=== PATIENT | male | born 1960 | race Caucasian/White ===

== ENCOUNTER 2019-12-08 09:42 | Inpatient (IN) ==
--- NOTE | 2019-12-05 09:14 | Anesthesiology Consultation ---
Date of Service December 05, 2019 Assessment & Plan (1) Encounter for pre-operative examination: History Surgery Operation Date: 12/08/19 11:20 Proposed Procedures p L4-S1 Decompression and Fusion, Spinal Cord Monitoring - Tobi Lilly DO Height/Weight Height: 6 ft Weight: 102.058 kg Allergies Allergy/AdvReac Type Severity Reaction Status Date / Time No Known Allergies Allergy Verified 12/05/19 07:52 Medications Home Medications Medication Instructions Recorded Confirmed Last Taken aspirin [Aspir-81] 81 mg PO QAM 11/14/19 12/05/19 12/02/19 atorvastatin [Lipitor] 20 mg PO QAM 11/14/19 12/05/19 12/02/19 metformin 2,000 mg PO QAM 11/14/19 12/05/19 12/02/19 [id number]-mhl-TI-lycopen-lutein 1 tab PO QAM 11/14/19 12/05/19 12/02/19 [Centrum Silver] dexamethasone See Rx Instructions .ROUTE 12/02/19 12/05/19 Unknown .COMPLEX #15 tab cyclobenzaprine 5 mg PO TID PRN 12/04/19 12/05/19 Unknown oxycodone-acetaminophen 1 tab PO Q8H PRN 12/04/19 12/05/19 Unknown Past Medical History Medical History (Updated 12/05/19 @ 09:11 by Gail Olmos PA-C) CAD (coronary artery disease) s/p stent in 2004 and stent in 2009 Degenerative disc disease Hypercholesterolemia Pre-diabetes Past Family History Family History Mother Family history of diabetes mellitus Past Surgical History Surgical History History of arthroscopy RT KNEE History of cardiac cath LAST CARDIAC CATH 2014 History of colonoscopy History of heart artery stent 2004, 2009 (2 TOTAL STENTS) DONE IN AT [place] History of tonsillectomy Hx of cataract surgery RT/LEFT Hx of shoulder surgery RT [place] teeth removed Social History Smoking Status: Never smoker Do You Dip or Chew Tobacco: No Hx Alcohol Use: Yes Alcohol type: beer alcohol intake frequency: a few times a month Hx Substance Use: No substance use type: does not use Testing Electrocardiogram Date: 12/04/19 SR with occ PVCs at 76 bpm. Chest X-Ray Date: 12/04/19 Findings: + NAD
[~2019-12-08 09:42] MED LIST: ACETAMINOPHEN 500 MG TAB PO SCH; CEFAZOLIN 2000MG 2,000 MG/15 ML SYR IV SCH; CeleBREX 200 MG CAP PO SCH; GABAPENTIN 600 MG DOSE PO SCH; LR 15ML/HR IV SCH
[2019-12-08] MEDS ORDERED: ONDANSETRON INJ 2 MG/ML 2 ML VIAL IV PRN ×2 (10:52→15:54)
[2019-12-08] MEDS ORDERED: ePHEDrine sulfate 50 MG/ML AMP IV PRN (10:52)
[2019-12-08] MEDS ORDERED: HYDROmorphone INJ 1 MG/ML SYRINGE IV PRN ×2 (10:52→15:54)
[2019-12-08] MEDS ORDERED: ATROPINE SULFATE 0.1 MG/ML 10ML SYR IV PRN (10:52)
[2019-12-08] MEDS ORDERED: fentaNYL citrate 100 MCG/2 ML VIAL IV PRN (10:52)
--- NOTE | 2019-12-08 10:52 | History & Physical Report ---
Date of Service December 08, 2019 Assessment & Plan (1) Neurogenic claudication due to lumbar spinal stenosis: Lumbar decompression and fusion L4-L5 L5-S1 Present on Admission?: Yes History of Present Illness Chief Complaint: Back and bilateral leg pain Primary Care Provider: Willie Hudson This is a 59-year-old male who presents with worsening back and leg pain after failing extensive course of nonoperative care is here for surgical invention. Allergies Allergy/AdvReac Type Severity Reaction Status Date / Time No Known Allergies Allergy Verified 12/08/19 10:23 Home Medications Home Medications Medication Instructions Recorded Confirmed Type aspirin [Aspir-81] 81 mg PO QAM 11/14/19 12/08/19 History atorvastatin [Lipitor] 20 mg PO QAM 11/14/19 12/05/19 History metformin 2,000 mg PO QAM 11/14/19 12/05/19 History bmpgrukk-nbg-JV-lycopen-lutein 1 tab PO QAM 11/14/19 12/08/19 History [Centrum Silver] dexamethasone See Rx Instructions .ROUTE 12/02/19 12/08/19 Rx .COMPLEX #15 tab cyclobenzaprine 5 mg PO TID PRN 12/04/19 12/08/19 History oxycodone-acetaminophen 1 tab PO Q8H PRN 12/04/19 12/08/19 History lorazepam [Ativan] 0.5 mg PO PM PRN 12/08/19 12/08/19 History Past Med/Surg History Family History Mother Family history of diabetes mellitus Social History Preferred Language: Marshallese Communication Ability: Effective Quarter Lining Smoother Required: No Beliefs That Will Affect Care: None Current Living Situation: Spouse Feels Safe at Home: Yes Safety Concerns: Feels Safe At This Time Smoking Status: Never smoker Do You Dip or Chew Tobacco: No ; Second Hand Exposure: No ; Tobacco Cessation Education Requested by Patient: No Hx Alcohol Use: Yes Alcohol type: beer Hx Substance Use: No Physical Exam Physical Exam: Patient is alert and oriented Patient has weakness affecting left lower extremity. Obvious distress. Heart is regular rate and rhythm Lungs clear to auscultation Results & Data Vital Signs (Past 12 Hours) Vital Signs Temp Pulse Resp BP Pulse Ox 12/08/19 10:29 36.8 C 66 18 152/99 H 96
[2019-12-08] MEDS ORDERED: BUPIVACAINE/EPINEPHRINE 0.25% 1:200,000 30 ML VIAL ONE (11:28)
[2019-12-08] MEDS ORDERED: BACITRACIN INJ 50,000 UNIT VIAL ONE (11:29)
[2019-12-08] MEDS ORDERED: MIDAZOLAM HCL 1 MG/ML 2ML VIAL ONE (11:31)
[2019-12-08] MEDS ORDERED: ONDANSETRON INJ 2 MG/ML 2 ML VIAL ONE (11:31)
[2019-12-08] MEDS ORDERED: DEXAMETHASONE SOD INJ 4 MG/ML VIAL ONE (11:31)
[2019-12-08] MEDS ORDERED: LIDOCAINE HCL 2% 2 ML VIAL/AMP(20MG/ML) INFIL ONE (11:31)
[2019-12-08] MEDS ORDERED: fentaNYL citrate 100 MCG/2 ML VIAL ONE ×3 (11:31→14:22)
[2019-12-08] MEDS ORDERED: ROCURONIUM BROMIDE 10 MG/ML 5 ML VIAL ONE (11:31)
[2019-12-08] MEDS ORDERED: PROPOFOL IV EMULSION 10 MG/ML 20 ML VIAL IV ONE (11:31)
[2019-12-08] MEDS ORDERED: NEOSTIGMINE METHYLSULFATE 5 MG/5 ML SYR ONE (13:53)
[2019-12-08] MEDS ORDERED: GLYCOPYRROLATE 0.2 MG/ML VIAL ONE (13:53)
[2019-12-08] MEDS ORDERED: FLOSEAL HEMOSTATIC MATRIX 10ML TOP ONE (14:06)
--- NOTE | 2019-12-08 14:24 | Operative Report ---
Post Operative Report Pre & Post Diagnosis Operation Date: 12/08/19 11:20 Pre-Op Diagnosis: Lumbar Spinal Stenosis with Neurogenic Claudication Post-Op Diagnosis: Lumbar Spinal Stenosis with Neurogenic Claudication I identified the patient and participated in the time-out.: Yes Procedure Operation Date: 12/08/19 11:20 Actual Procedures #1 lumbar decompression with bilateral medial facetectomies and foraminotomies L3-4, L4-5 L5-S1. #2 posterior spinal fusion L4-5 L5-S1. #3 placed posterior instrumentation L4-5 L5-S1. #4 interbody fusion L4-5 L5-S1. #5 placed a peek cage 13 x 26 mm at L4-5 and 14 x 26 mm at L5-S1. #6 placement of locally harvested morselized autograft in the posterior lateral gutters. #7 placement infuse collagen sponge, master graft in the posterior lateral gutters and ostial amp and interbody space. Surgeon Tobi Lilly, Internet Sales Associate Ilana Real Estimated Blood Loss 400 Findings Consistent with Post-Op Diagnosis Specimens None Indications This is a 59-year-old male who presents with marked decline in status secondary to severe stenosis and far lateral disc herniation. Subsequently he is here for urgent decompression fusion. Description of Procedure Patient was met with preoperatively case discussed all questions were addressed. That point patient was taken back to the operative suite after successfully undergoing intubation department seizure was placed in a prone position the Eliceo table on top of the Mendoza frame. All bony prominences well-padded eyes inspected to ensure no external pressure placed upon them. This point the lumbar spine was prepped and draped in a normal sterile fashion. Sharp dissection with the assistance of Bovie cautery was performed down to and exposing the lamina and transverse processes of L4-L5 and the sacral ala bilaterally. From a caudal cephalad fashion complete laminectomy of L5 L4 and partial laminectomy of L3 was performed including bilateral medial facetectomies and foraminotomies addressing severe spinal stenosis. As well there is evidence of a massive disc condition occupying the foramen L4-5 on the left. This was removed in its entirety. Pedicle screws were then placed in L4-L5 and S1 levels bilaterally with assistance of fluoroscopy and appropriately sized david placed. By way of a transforaminal approach on the left complete discectomy of L5-S1 was performed endplates curetted to subcortical bleeding bone and a 14 x 26 mm peek cage filled with osteo-bone graft tapped in position. Then proceeded L4-[address] of a trans-foraminal approach on the left complete discectomy performed endplates curetted to subcortical bleeding bone and a 13 x 26 mm peek cage filled with osteo-bone graft tapped in position. The rods were then locked into final position bilaterally. The transverse processes of L3-L4-L5 bur to subcortical bleeding bone. Infuse collagen sponge master graft local autograft placed in the posterior lateral gutters. 15 round JULISA drain inserted. The incision was then closed with 1 Vicryl in the fascia 2-0 Vicryl subcutaneously and 4 Monocryl for final skin closure. Steri-Strip sterile dressings placed. Patient waken taken PACU stable condition. Please note spinal cord monitoring was utilized that the procedure no changes noted. Lastly Ilana Real was present at the entire procedure involved the patient positioning complex portion of the surgery and final skin closure. I attest to the content of the Intraoperative Record and any orders documented therein. Any exceptions are noted below.
--- NOTE | 2019-12-08 14:31 | Fluoroscopy Report ---
FL lumbar spine 2-3V CLINICAL HISTORY: L4-S1 DECOMPRESSION COMPARISON STUDY: Lumbar spine MRI November 14, 2019. FLUOROSCOPY TIME: 19.5 seconds. FLUOROSCOPIC IMAGES: 2 FINDINGS: These images demonstrate L4-L5 and L5-S1 discectomies with interbody spacer placement. Post erior decompression is noted with bilateral pedicle screws at the L4, L5 and S1 levels with interconn ecting rods. Hardware is intact. There are no unexpected radiopaque foreign bodies. IMPRESSION: Fluoroscopy provided for L4-L5 and L5-S1 discectomies, posterior decompression and bilat eral pedicle screw fusion. ACT 112: Negative or not required by law. Electronically signed by: Nick Bowden M.D. 12/08/2019 2:30 PM
--- NOTE | 2019-12-08 15:20 | Anesthesiology Progress Note ---
Date of Service December 08, 2019 Anesthesia Post Procedure Vital Signs Vital Signs: Temp Pulse Pulse Resp BP Pulse Ox 12/08/19 15:10 72 14 122/85 98 12/08/19 15:04 97.9 F 84 12 129/85 98 12/08/19 10:29 98.2 F 66 18 152/99 H 96 Pain Intensity Back: Pain Intensity: 2 Transfer of Care Handoff Completed per policy Notes Mental Status: alert / awake / arousable and participated in evaluation Patient Amnestic to Procedure: Yes Nausea / Vomiting: adequately controlled Pain: adequately controlled Airway Patency, RR, SpO2: stable & adequate BP & HR: stable & adequate Hydration State: stable & adequate Anesthetic Complications: no major complications apparent and Pt Satisfied with anesthetic care
[2019-12-08] MEDS ORDERED: SOD PHOSPHATE/SOD BIPHOSPHATE ENEMA 132 ML BTL PR PRN (15:54)
[2019-12-08] MEDS ORDERED: bisacodyL 10 MG SUPP PR PRN (15:54)
[2019-12-08] MEDS ORDERED: PROMETHAZINE HCL 12.5 MG in SODIUM CHLORIDE 0.9% 50 ML IV PRN (15:54)
[2019-12-08] MEDS ORDERED: ONDANSETRON 4 MG OD TAB PO PRN (15:54)
[2019-12-08] MEDS ORDERED: ACETAMINOPHEN 500 MG TAB PO PRN (15:54)
[2019-12-08] MEDS ORDERED: HYDROmorphone INJ 0.5 MG/0.5 ML SYR IV PRN (15:54)
[2019-12-08] MEDS ORDERED: FAMOTIDINE 20 MG TAB PO PRN (15:54)
[2019-12-08] MEDS ORDERED: METOCLOPRAMIDE HCL INJ 5 MG/ML 2 ML VIAL IV PRN (15:54)
[2019-12-08] MEDS ORDERED: DO NOT ADMINISTER FLU VACCINE PRN (15:54)
[2019-12-08] MEDS ORDERED: LORazepam 0.5 MG TAB PO PRN (15:54)
[2019-12-08] MEDS ORDERED: DO NOT ADMINISTER PNEUMOCOCCAL VACCINE PRN (15:54)
[2019-12-08] MEDS ORDERED: ACETAMINOPHEN 1,000 MG/100 ML VIAL IV PRN (15:54)
[2019-12-08] MEDS ORDERED: LORazepam 0.5 MG/1 ML VIAL IV PRN (15:54)
[2019-12-08] MEDS ORDERED: ALUMINUM/MAGNESIUM SUSP 30 ML UDC PO PRN (15:54)
[2019-12-08] MEDS ORDERED: MAGNESIUM HYDROXIDE SUSP 30 ML UDC PO PRN (15:54)
[2019-12-08] MEDS ORDERED: NALOXONE HCL 0.4 MG/1 ML VIAL/CARP IV PRN (15:54)
[2019-12-08] MEDS ORDERED: PHARMACY GLYCEMIC MGMT CONSULT PRN (16:05)
[2019-12-08] MEDS ORDERED: CARBOHYDRATES FOR HYPOGLYCEMIA PO PRN (16:15)
[2019-12-08] MEDS ORDERED: GLUCOSE 10 TABS/TUBE PO PRN (16:15)
[2019-12-08] MEDS ORDERED: GLUCAGON FOR INJ 1 MG VIAL IM PRN (16:15)
[2019-12-08] MEDS ORDERED: DEXTROSE 50% 50 ML SYRINGE IV PRN (16:15)
[2019-12-08] MEDS ORDERED: GLUCOSE 40% GEL 15 GM TUBE PO PRN (16:15)
[2019-12-08] MEDS: SODIUM CHLORIDE 0.9% 1000ML 1,000 ML IV SCH (16:32)
[2019-12-08] MEDS ORDERED: NovoLIN-N (NPH) PER UNIT CHARGE SQ ONE (17:00)
--- NOTE | 2019-12-08 17:09 | Pharmacy Report ---
Glycemic Control Consultation - Date of Service December 08, 2019 - Scope Scope: Glycemic Pharmacist consulted for glycemic control and to write orders per [facility] inpatient glycemic control protocol. - Objective Weight: 99.5 kg Accuchecks BSG (last 24hrs): 12/08/19 12/08/19 10:10 15:06 POC Glucose 149 H 179 H - Recent Pertinent Medications Outpatient Anti-diabetic Regimen: * metformin 2 gm PO daily * A1c = [] % [date] Risk Factors for Insulin Resistance: * Steroids: dexamethasone 8 mg IV intraop * Recent Surgery: POD 0 for lumbar surgery * Diet: clear liquid - Assessment & Plan Assessment & Plan: ASSESSMENT: * Mr Samuel is a 59 y/o M with a PMH of T2DM on one oral medications. Patient was recently on dexamethasone taper starting 12/02/19 (per records) so recent blood sugars have most likely been high. * Fasting BSG was 149 mg/dL ... uncertain how accurate that is due to recent dexamethasone use. Will give NPH since unsure if patient requires basal insulin. Give weight-based stress of 3 half dose -should mimic steroid hyperglycemia will. * Weight-based stress of 3 Novolog for now. Overnight accuchecks added. * Pt is maintained on oral antidiabetic agents as an outpatient * Oral agents are not recommended for inpatient use d/t drug interactions, changing PO intake, and difficulty titrating for acute hyper/hypoglycemia. ADA recommends re-initiating outpatient oral agents 1-2 days prior to discharge if/when appropriate if they were held on admission. * Will hold oral agents for admission and utilize SQ basal bolus insulin regimen which is the recommended regimen for inpatient glycemic control. * Will initiate weight based insulin dosing for insulin marbella patient and titrate based on BSG trends. * ADA & AACE recommend a goal blood sugar range 140-180 mg/dl for the majority of critically ill & non-critically ill patients. However, more stringent targets may be selected in individual cases. Will utilize more stringent goal of 110-140mg/dl based on patient age & comorbidities. Additionally, tighter glycemic control is warranted to facilitate wound/infection healing. PLAN FOR INPATIENT GLYCEMIC CONTROL: * Holding outpatient oral diabetes medications * Basal insulin * NPH 25 units SQ x 1 * Bolus insulin * NovoLog per scale ACHS or Q6hrs while NPO * Goal Range: Low 110 mg/dL - High 140 mg/dL * Correction Factor: 15 mg/dL/unit * Nutritional / Prandial insulin per carb ratio of 1 unit per 5 grams CHO consumed * Please note that the plan above was derived based on current level of insulin resistance and hospital stress. These recommendations are appropriate for inpatient admission only. Plan of care upon discharge will need to be reassessed to avoid potential outpatient hypo/hyperglycemia. Thank you.
--- NOTE | 2019-12-08 17:09 | Hospitalist Consultation ---
Date of Consultation December 08, 2019 Assessment & Plan (1) Neurogenic claudication due to lumbar spinal stenosis: - POD#0 L4-L5, L5-S1 by Dr. Lilly - activity and wound care orders as per ortho - pain control with bowel regimen - PT/OT - monitor H/H for acute blood loss anemia and transfuse blood products PRN - EBL 400cc (2) CAD (coronary artery disease): -stable, no reports of chest pain -continue ASA and statin (3) Pre-diabetes: -hgb a1c unknown, check with AM labs -hold metformin -glycemic pharmacy consult placed by ortho (4) DVT prophylaxis: -NATO/SCDs as per spine ortho Thank you for this consultation. We will follow the patient with you during their hospital stay. You can reach a member of the [facility] Hospitalist Team 12/02 via pager @ [phone]. Supervising Physician Co-Signing Physician Notes I, Dr. Adam Potter, have seen and examined the patient Bashir Samuel with nurse practitioner and would like to comment that on Physical Exam General: speaks comfortably and in full sentences Heart: regular rate Lung: clear to auscultation bilaterally, no wheezing Abdomen: soft, nontender, positive bowel sounds Back: presence of JULISA drain with blood Extremities: legs in SCDs : has beltran ASSESSMENT AND PLAN -hospitalist medicine consult requested by Dr. Lilly -Patient with Pre-Op Diagnosis of Spinal Stenosis, Lumbar Region with Neurogenic Claudication -status post spine surgery by Dr. Lilly on 12/08/2019. (#1 lumbar decompression with bilateral medial facetectomies and foraminotomies L3-4, L4-5 L5-S1. #2 posterior spinal fusion L4-5 L5-S1. #3 placed posterior instrumentation L4-5 L5-S1. #4 interbody fusion L4-5 L5-S1. #5 placed a peek cage 13 x 26 mm at L4-5 and 14 x 26 mm at L5-S1. #6 placement of locally harvested morselized autograft in the posterior lateral gutters. #7 placement infuse collagen sponge, master graft in the posterior lateral gutters and ostial amp and interbody space.) -monitor for acute blood loss anemia -management of wound care, patients activities as per orthopedics -agree with other assessment and plans as per nurse practitioner in management of pre-diabetes and coronary artery disease -My colleague will be taking over the care of the patient as consult service hospitalist starting on 12/09/2019 History of Present Illness Reason for Consultation: Post Op Medical Management Requesting Physician: Dr. Lilly Attending Physician: Tobi Lilly, DO History of Present Illness 59 year old male with PMH CAD, prediabetes, and other problems listed below who is s/p L4-L5 and L5-S1 decompression and fusion by Dr. Lilly. Post operatively the patient is doing well. He reports his pain is well controlled. He denies numbness and tingling to the lower extremities. No chest pain or shortness of breath. Denies lightheadedness and dizziness. No abdominal pain or nausea. Beltran is in place draining clear yellow urine. Allergies Allergy/AdvReac Type Severity Reaction Status Date / Time No Known Allergies Allergy Verified 12/08/19 10:23 Home Medications Home Medications Medication Instructions Recorded Confirmed Type aspirin [Aspir-81] 81 mg PO QAM 11/14/19 12/08/19 History atorvastatin [Lipitor] 20 mg PO QAM 11/14/19 12/05/19 History metformin 2,000 mg PO QAM 11/14/19 12/05/19 History jhdxzaqq-vsc-KK-lycopen-lutein 1 tab PO QAM 11/14/19 12/08/19 History [Centrum Silver] dexamethasone See Rx Instructions .ROUTE 12/02/19 12/08/19 Rx .COMPLEX #15 tab cyclobenzaprine 5 mg PO TID PRN 12/04/19 12/08/19 History oxycodone-acetaminophen 1 tab PO Q8H PRN 12/04/19 12/08/19 History lorazepam [Ativan] 0.5 mg PO PM PRN 12/08/19 12/08/19 History Patient History Medical History CAD (coronary artery disease) s/p stent in 2004 and stent in 2009 Degenerative disc disease Hypercholesterolemia Pre-diabetes Surgical History History of arthroscopy RT KNEE History of cardiac cath LAST CARDIAC CATH 2014 History of colonoscopy History of heart artery stent 2004, 2009 (2 TOTAL STENTS) DONE IN [facility] History of tonsillectomy Hx of cataract surgery RT/LEFT Hx of shoulder surgery RT [place] teeth removed Family History Mother Family history of diabetes mellitus Social History Preferred Language: Italian Communication Ability: Effective Personal Injury Legal Assistant Required: No Beliefs That Will Affect Care: None Current Living Situation: Spouse Feels Safe at Home: Yes Safety Concerns: Feels Safe At This Time Smoking Status: Never smoker Do You Dip or Chew Tobacco: No ; Second Hand Exposure: No ; Tobacco Cessation Education Requested by Patient: No Hx Alcohol Use: Yes Alcohol type: beer Hx Substance Use: No Review of Systems Review of Systems: ROS per HPI, all other systems reviewed and negative Physical Exam Constitutional: WD/WN, vitals as above Eyes: PERRL, conjunctivae normal, anicteric sclerae ENMT: external ear and nose normal, oropharynx normal Respiratory: normal respiratory effort, lungs clear to auscultation Cardiovascular: Rate/Rhythm: regular rate and regular rhythm Vessels: normal peripheral pulses Extremities: no edema Gastrointestinal (Abdomen): normal bowel sounds, soft, nontender, no hepatosplenomegaly Musculoskeletal: no cyanosis or clubbing, extremities motor strength 5/5 s/p back surgery, pedal pushes and pulls strong BL, drain in place draining bloody drainage Skin: no rashes, warm and dry Neurologic: PERRL, EOMI, accommodation nl, no face palsy, no dysarthria Psychiatric: A+Ox3, euthymic affect Results & Data Results & Data ([facility]) Vital Signs (Past 12 Hours) Vital Signs Temp Pulse Pulse Resp BP Pulse Ox 12/08/19 17:01 36.4 C L 74 16 127/78 93 12/08/19 16:24 36.4 C L 76 16 134/80 92 12/08/19 15:40 75 14 122/85 96 12/08/19 15:30 36.7 C 79 14 140/74 97 12/08/19 15:20 74 14 125/86 96 12/08/19 15:10 72 14 122/85 98 12/08/19 15:04 36.6 C 84 12 129/85 98 12/08/19 10:29 36.8 C 66 18 152/99 H 96
[2019-12-08] MEDS: INSULIN ASPART 100 UNITS/ML 3 ML PEN SC SCH ×2 (17:51→21:35)
[2019-12-08] MEDS: KETOROLAC 30 MG/ML VIAL IV SCH (17:51)
[2019-12-08] MEDS: CEFAZOLIN 2000MG 2,000 MG/15 ML SYR IV SCH (21:24)
[2019-12-08] MEDS: DOCUSATE SODIUM/SENNA 50/8.6MG TAB PO SCH (21:32)
[2019-12-09] MEDS: INSULIN ASPART 100 UNITS/ML 3 ML PEN SC SCH ×6 (00:04→21:28)
[2019-12-09] MEDS: KETOROLAC 30 MG/ML VIAL IV SCH ×3 (00:05→13:07)
[2019-12-09] MEDS: SODIUM CHLORIDE 0.9% 1000ML 1,000 ML IV SCH (03:12)
[2019-12-09] MEDS: CEFAZOLIN 2000MG 2,000 MG/15 ML SYR IV SCH (03:49)
[2019-12-09] MEDS: POLYETHYLENE (MIRALAX) 17 GM PACK PO SCH ×3 (06:30→18:09)
[2019-12-09 06:49] LABS: Basophils # (auto) 0.01 K/uL (0-0.2); Basophils % (auto) 0.1 %; Eosinophils # (auto) 0.01 K/uL (0-0.5); Eosinophils % (auto) 0.1 %; Hemoglobin 13.5 g/dL (14.0-18.0); Immature Granulocytes # (auto) 0.07 K/uL (0.00-0.02); Immature Granulocytes % (auto) 0.7 %; Lymphocytes # (auto) 1.46 K/uL (1.2-3.4); Lymphocytes % (auto) 13.9 %; Mean Corpuscular Hemoglobin 34.3 pg (25-34); Mean Corpuscular Hgb Conc 35.5 g/dL (32-36); Mean Corpuscular Volume 96.4 fL (80-100); Mean Platelet Volume 11.3 fL (7.4-10.4); Monocytes # (auto) 0.76 K/uL (0.11-0.59); Monocytes % (auto) 7.2 %; Neutrophils # (auto) 8.21 K/uL (1.4-6.5); Platelet Count 159 K/uL (130-400); RDW Coefficient of Variation 12.6 % (11.5-14.5); RDW Standard Deviation 44.3 fL (36.4-46.3); Red Blood Count 3.94 M/uL (4.7-6.1); White Blood Count 10.52 K/uL (4.8-10.8)
[2019-12-09 07:25] LABS: Estimated Average Glucose 137 mg/dl; Hemoglobin A1C 6.4 % (4.5-5.6)
[2019-12-09 07:28] LABS: BUN Creatinine Ratio 22.6 (10-20); Calcium 8.3 mg/dl (8.5-10.1); Creatinine Clr Calc Pharmacy 108.9 ml/min; Est GFR (Non-African American) 93.2; Potassium 3.7 mmol/L (3.5-5.1)
[2019-12-09] MEDS: ATORVASTATIN 20 MG TAB PO SCH (08:50)
[2019-12-09] MEDS: CEROVITE ADV FORMULA TAB PO SCH (08:50)
[2019-12-09] MEDS: ASPIRIN 81 MG ECTAB PO SCH (08:51)
--- NOTE | 2019-12-09 10:22 | Pharmacy Report ---
Pharmacy Glycemic Short Note 2 - Date of Service December 09, 2019 - Glycemic Short BSG Results (Last 24 hours): OUTPATIENT ANTIDIABETIC REGIMEN: * Metformin 2 g PO daily * HbA1c: 6.4% (12/09/19) ASSESSMENT: * Patient is POD #1 s/p L4-S1 decompression and fusion * Received dexamethasone 8 mg IV intraoperatively - covered with NPH 25 units x 1 * BSGs well controlled and HbA1c of 6.4% demonstrates good control PLAN FOR INPATIENT GLYCEMIC CONTROL: * Hold outpatient oral diabetes medications * Basal insulin * Hold * Bolus insulin * NovoLog per scale ACHS or Q6hrs while NPO * Goal Range: Low 110 mg/dL - High 140 mg/dL * Correction Factor: 35 mg/dL/unit * Nutritional / Prandial insulin per carb ratio of 1 unit per 12 grams CHO consumed PLAN FOR DISCHARGE: * Continue home regimen - A1c of 6.4%
--- NOTE | 2019-12-09 10:48 | Orthopedic Progress Note ---
Date of Service December 09, 2019 Assessment & Plan (1) Neurogenic claudication due to lumbar spinal stenosis: This and the patient will continue with physical therapy will monitor JULISA operatively discharge home the next day or so. Present on Admission?: Yes Admission and Anticipated Discharge Date Admission Date: December 08, 2019 Subjective Back pain is controlled leg pain markedly improved. Physical Exam Physical Exam: Patient is in the chair at the bedside. Is good strength testing. Appears comfortable. Results & Data ([facility]) Vital Signs (Past 12 Hours) Vital Signs Temp Pulse Pulse Resp BP Pulse Ox 12/09/19 09:37 98 12/09/19 07:30 36.6 C 55 L 18 146/84 H 92 12/09/19 03:40 36.6 C 56 L 18 121/77 94 12/08/19 23:45 36.5 C 61 20 128/78 96
--- NOTE | 2019-12-09 14:15 | Hospitalist Progress Note ---
Date of Service December 09, 2019 Assessment & Plan (1) Neurogenic claudication due to lumbar spinal stenosis: POD # 1. (2) CAD (coronary artery disease): No anginal symptoms. Not on beta gutierrez- probably because of bradycardia. Continue aspirin, statin. (3) Pre-diabetes: Hgb A1C = 6.4. FBS = 117. Hold metformin during hospital stay. Insulin coverage as necessary. Resume metformin upon discharge. (4) DVT prophylaxis: Per Ortho protocol. (5) Encounter for consultation: Thank you for this consultation. We will follow the patient with you during their hospital stay. My cell # is [phone]. You can reach a member of the [facility] Medicine Team 12/02 via pager @ [phone]. Admission and Anticipated Discharge Date Admission Date: December 08, 2019 Subjective Recheck for medical management. Patient seen in their room around 1400. Doing well postoperatively. No fever. No chest pain, cough, SOB, nausea, vomiting. Passing flatus, no stool Voiding without difficulty. Pain well-controlled. Ambulating with PT. Physical Exam Constitutional: no acute distress Respiratory: no respiratory distress Auscultation: lungs clear to auscultation bilaterally Cardiovascular: Rate/Rhythm: regular rate and regular rhythm Heart Sounds: no gallop, no murmur and no cardiac rub Vessels: no JVD Extremities: no calf tenderness and no edema Gastrointestinal (Abdomen): normal bowel sounds, soft, nontender, no hepatosplenomegaly Musculoskeletal: Extremities: extremities normal to inspection (TEDS applied to lower extremities) Skin: no rashes, warm and dry Psychiatric: Orientation: alert and oriented x 3 Results & Data Results & Data ([facility]) Vital Signs (Past 12 Hours) Vital Signs Temp Pulse Pulse Resp BP Pulse Ox 12/09/19 09:37 98 12/09/19 07:30 36.6 C 55 L 18 146/84 H 92 12/09/19 03:40 36.6 C 56 L 18 121/77 94 Laboratory Results Laboratory Results - last 24 hr 12/08/19 12/08/19 12/08/19 15:06 17:03 20:54 WBC RBC Hgb Hct MCV MCH MCHC RDW Std Deviation RDW Coeff of Anthony Plt Count MPV Immature Gran % (Auto) Neut % (Auto) Lymph % (Auto) Leon % (Auto) Eos % (Auto) Baso % (Auto) Immature Gran # (Auto) Neut # (Auto) Lymph # (Auto) Leon # (Auto) Eos # (Auto) Baso # (Auto) Sodium Potassium Chloride Carbon Dioxide Anion Gap BUN Creatinine Est Cr Clr Drug Dosing Est GFR ( Amer) Est GFR (Non-Af Amer) BUN/Creatinine Ratio Glucose POC Glucose 179 H 177 H 168 H Estimat Average Glucose Hemoglobin A1c Calcium 12/09/19 12/09/19 12/09/19 00:01 03:37 06:12 WBC 10.52 RBC 3.94 L Hgb 13.5 L Hct 38.0 L MCV 96.4 MCH 34.3 H MCHC 35.5 RDW Std Deviation 44.3 RDW Coeff of Anthony 12.6 Plt Count 159 MPV 11.3 H Immature Gran % (Auto) 0.7 Neut % (Auto) 78.0 Lymph % (Auto) 13.9 Leon % (Auto) 7.2 Eos % (Auto) 0.1 Baso % (Auto) 0.1 Immature Gran # (Auto) 0.07 H Neut # (Auto) 8.21 H Lymph # (Auto) 1.46 Leon # (Auto) 0.76 H Eos # (Auto) 0.01 Baso # (Auto) 0.01 Sodium Potassium Chloride Carbon Dioxide Anion Gap BUN Creatinine Est Cr Clr Drug Dosing Est GFR ( Amer) Est GFR (Non-Af Amer) BUN/Creatinine Ratio Glucose POC Glucose 118 H 98 Estimat Average Glucose Hemoglobin A1c Calcium 12/09/19 12/09/19 12/09/19 06:12 06:12 08:20 WBC RBC Hgb Hct MCV MCH MCHC RDW Std Deviation RDW Coeff of Anthony Plt Count MPV Immature Gran % (Auto) Neut % (Auto) Lymph % (Auto) Leon % (Auto) Eos % (Auto) Baso % (Auto) Immature Gran # (Auto) Neut # (Auto) Lymph # (Auto) Leon # (Auto) Eos # (Auto) Baso # (Auto) Sodium 140 Potassium 3.7 Chloride 106 Carbon Dioxide 26 Anion Gap 8.0 BUN 20 H Creatinine 0.87 Est Cr Clr Drug Dosing 108.9 Est GFR ( Amer) 108.0 Est GFR (Non-Af Amer) 93.2 BUN/Creatinine Ratio 22.6 H Glucose 103 H POC Glucose 117 H Estimat Average Glucose 137 Hemoglobin A1c 6.4 H Calcium 8.3 L 12/09/19 12:06 WBC RBC Hgb Hct MCV MCH MCHC RDW Std Deviation RDW Coeff of Anthony Plt Count MPV Immature Gran % (Auto) Neut % (Auto) Lymph % (Auto) Leon % (Auto) Eos % (Auto) Baso % (Auto) Immature Gran # (Auto) Neut # (Auto) Lymph # (Auto) Leon # (Auto) Eos # (Auto) Baso # (Auto) Sodium Potassium Chloride Carbon Dioxide Anion Gap BUN Creatinine Est Cr Clr Drug Dosing Est GFR ( Amer) Est GFR (Non-Af Amer) BUN/Creatinine Ratio Glucose POC Glucose 108 H Estimat Average Glucose Hemoglobin A1c Calcium
[2019-12-09] MEDS: DOCUSATE SODIUM/SENNA 50/8.6MG TAB PO SCH (21:27)
[2019-12-10] MEDS: POLYETHYLENE (MIRALAX) 17 GM PACK PO SCH ×5 (00:32→23:47)
[2019-12-10] MEDS: TRAMADOL HCL 50 MG TABLET PO PRN ×2 (06:24→23:47)
--- NOTE | 2019-12-10 08:22 | Pharmacy Report ---
Pharmacy Glycemic Short Note 2 - Date of Service December 10, 2019 - Glycemic Short BSG Results (Last 24 hours): OUTPATIENT ANTIDIABETIC REGIMEN: * Metformin 2 g PO daily * HbA1c: 6.4% (12/09/19) ASSESSMENT: * Patient is POD #2 s/p L4-S1 decompression and fusion * BSGs have been very well controlled during this admission PLAN FOR INPATIENT GLYCEMIC CONTROL: * Hold outpatient oral diabetes medications * Basal insulin * Continue to hold * Bolus insulin - loosen to weight-based stress of 1 dosing * NovoLog per scale ACHS or Q6hrs while NPO * Goal Range: Low 110 mg/dL - High 140 mg/dL * Correction Factor: 45 mg/dL/unit * Nutritional / Prandial insulin per carb ratio of 1 unit per 15 grams CHO consumed PLAN FOR DISCHARGE: * Continue home regimen - A1c of 6.4% `
[2019-12-10] MEDS: ATORVASTATIN 20 MG TAB PO SCH (08:58)
[2019-12-10] MEDS: ASPIRIN 81 MG ECTAB PO SCH (08:58)
[2019-12-10] MEDS: CEROVITE ADV FORMULA TAB PO SCH (08:58)
[2019-12-10] MEDS: INSULIN ASPART 100 UNITS/ML 3 ML PEN SC SCH ×4 (08:59→21:26)
[2019-12-10] MEDS ORDERED: DEXAMETHASONE SOD PHOSPHATE 8 MG in SYRINGE 0 ML IV STA (10:12)
--- NOTE | 2019-12-10 10:13 | Orthopedic Progress Note ---
Date of Service December 10, 2019 Assessment & Plan (1) Neurogenic claudication due to lumbar spinal stenosis: This time we will continue physical therapy monitor his JULISA output anticipate discharge home tomorrow. Present on Admission?: Yes Admission and Anticipated Discharge Date Admission Date: December 08, 2019 Subjective Back pain controlled leg pain improved. Physical Exam Physical Exam: Patient is good strength testing appears comfortable. Results & Data ([facility]) Vital Signs (Past 12 Hours) Vital Signs Temp Pulse Pulse Resp BP Pulse Ox 12/10/19 07:29 36.6 C 57 L 16 107/77 97 12/09/19 23:03 37.0 C 56 L 15 96/55 L 98
--- NOTE | 2019-12-10 12:27 | Hospitalist Progress Note ---
Date of Service December 10, 2019 Assessment & Plan (1) Post-operative state: POD#2 s/p spinal surgery. Doing well as above. Cont PT/OT per ortho. DVT prophylaxis per Ortho (2) Neurogenic claudication due to lumbar spinal stenosis: s/p lumbar surgery as above. (3) CAD (coronary artery disease): stable, beta gutierrez contraindicated 2/2 bradycardia. Cont aspirin and statin (4) Pre-diabetes: Hgb A1C = 6.4. FBS = 117. Hold metformin during hospital stay. Insulin coverage as necessary. Resume metformin upon discharge. (5) DVT prophylaxis: SCDs/ambulation Full Code Dispo-poss DC to home in am. [facility] Ad[facility] and Anticipated Discharge Date Admission Date: December 08, 2019 Subjective Doing well post op Ambulating with PT and OT eating food no BM yet pain is managed with medication. Review of Systems Review of Systems: All systems reviewed & are unremarkable except as noted in Subjective Physical Exam Physical Exam: CONSTITUTIONAL: WNWD, vitals as above, generally well- appearing EYES: normal conjunctivae, no scleral icterus ENT: external ear and nose normal, MMM RESPIRATORY: clear to auscultation bilaterally, no crackles, rales or wheezes, normal respiratory effort CARDIOVASCULAR: regular rate and rhythm, S1 and 2 heard without murmurs, gallops or rubs, no JVD, no peripheral edema GASTROINTESTINAL: normal bowel sounds, soft, nontender, nondistended MUSCULOSKELETAL: strength 5/5 throughout, head is normocephalic and atraumatic, neck supple, normal palpation of chest wall without tenderness SKIN: warm and dry NEUROLOGIC: CN 2-12 grossly intact, no sensory deficit, normal cognition, normal speech, no tremor, no gross focal deficits. PSYCHIATRIC: alert cooperative and oriented to person, place and time. Results & Data Results & Data ([facility]) Vital Signs (Past 12 Hours) Vital Signs Temp Pulse Resp BP Pulse Ox 12/10/19 07:29 36.6 C 57 L 16 107/77 97 Medications Administered Current Inpatient Medications Acetaminophen (Tylenol) 1,000 mg PO Q8H PRN PRN Reason: MILD Pain Scale 1,2,3 & Pre PT Stop: 01/07/20 15:53 Al Hydrox/Mg Hydrox/Simethicone (Maalox) 30 ml PO Q6H PRN PRN Reason: Dyspepsia Stop: 01/07/20 15:53 Aspirin (E[facility]rin Ectab) [facility] [place] Stop: 01/08/20 08:59 Last Admin: 12/10/19 08:58 Dose: 81 mg Documented by: Atorvastatin Calcium (Lipitor) 20 [facility] [place] Stop: 01/08/20 08:59 Last Admin: 12/10/19 08:58 Dose: 20 mg Documented by: Bisacodyl (Dulcolax) 10 mg IL DAILY PRN PRN Reason: Constipation Stop: 01/07/20 15:53 Dextrose (Dextrose 50%) 25 - 50 ml IV UD PRN; Protocol PRN Reason: Hypoglycemia Protocol Stop: 01/07/20 16:14 Diphenhydramine HCl (Benadryl Capsule) 25 mg PO Q6H PRN PRN Reason: Allergic Rhinitis/Insomnia Stop: 01/07/20 15:53 Famotidine (Pepcid) 20 mg PO Q12H PRN PRN Reason: Dyspepsia Stop: 01/07/20 15:53 Glucagon (Glucagen) 1 mg IM UD PRN; Protocol PRN Reason: Hypoglycemia Protocol Stop: 01/07/20 16:14 Glucose (Glucose 40%) 15 - 30 gm PO UD PRN; Protocol PRN Reason: Hypoglycemia Protocol Stop: 01/07/20 16:14 Glucose (Dex4 Glucose) 4 - 8 tabs PO UD PRN; Protocol PRN Reason: Hypoglycemia Protocol Stop: 01/07/20 16:14 Hydromorphone HCl (Dilaudid) 0.5 mg IV Q3H PRN PRN Reason: MOD pain (scale 4-6) & Pre PT Stop: 12/22/19 15:53 Hydromorphone HCl (Dilaudid) 1 mg IV Q3H PRN PRN Reason: severe pain (scale 7-10) Stop: 12/22/19 15:53 Hydroxyzine HCl (Vistaril) 25 mg PO Q8H PRN PRN Reason: Anxiety Stop: 01/07/20 15:53 Promethazine HCl 12.5 mg/ (Sodium Chloride) 50.5 mls @ 204 mls/hr IV Q6H PRN PRN Reason: Nausea &/or Vomiting Stop: 01/07/20 15:53 Lorazepam (Ativan) 0.5 mg in 1 mls @ 0.5 mls/min IV Q8H PRN PRN Reason: Sedation/Anxiety Stop: 01/07/20 15:53 Influenza Virus Vaccine Quadrival (Flu Vaccine, Do Not Administer) 1 ea N/A PRN PRN PRN Reason: Notification Stop: 01/07/20 15:53 Insulin Aspart (Novolog Flexpen) 0 units SC ACHS MAMADOU Stop: 01/07/20 16:29 Last Admin: 12/10/19 08:59 Dose: 3 units Documented by: Lorazepam (Ativan) 0.5 mg PO Q8H PRN PRN Reason: Sedation/Anxiety Stop: 01/07/20 15:53 Magnesium Hydroxide (Milk Of Magnesia) 30 ml PO DAILY PRN PRN Reason: Constipation Stop: 01/07/20 15:53 Last Admin: 12/10/19 11:55 Dose: 30 ml Documented by: Metoclopramide HCl (Reglan) 10 mg IV Q6H PRN PRN Reason: Nausea &/or Vomiting Stop: 01/07/20 15:53 Miscellaneous (Carbohydrates For Hypoglycemia) 15 - 30 gm PO UD PRN PRN Reason: Hypoglycemia Treatment Stop: 01/07/20 16:14 Miscellaneous Information (Consult Glycemic Management Pharmacy) 1 ea N/A UD PRN PRN Reason: Consult Stop: 01/07/20 16:04 Multivitamins/Minerals (Multivitamin W/ Minerals Tab) 1 tab PO QAM MAMADOU Stop: 01/08/20 08:59 Last Admin: 12/10/19 08:58 Dose: 1 tab Documented by: Naloxone HCl (Narcan) 0.1 mg IV Q5M PRN; Protocol PRN Reason: Oversedation/Resp Depression Stop: 01/07/20 15:53 Ondansetron HCl (Zofran) 4 mg IV Q6H PRN PRN Reason: Nausea &/or Vomiting Stop: 01/07/20 15:53 Ondansetron HCl (Zofran Odt) 4 mg PO Q6H PRN PRN Reason: Nausea Stop: 01/07/20 15:53 Pneumococcal Polyvalent Vaccine (Pneumococcal Vacc, Do Not Administer) 1 ea N/A PRN PRN PRN Reason: Notification Stop: 01/07/20 15:53 Polyethylene Glycol (Miralax Powder Packet) 17 gm PO Q6 MAMADOU Stop: 01/08/20 05:59 Last Admin: 12/10/19 11:46 Dose: 17 gm Documented by: Senna/Docusate Sodium (Senokot S) 2 tab PO HS MAMADOU Stop: 01/07/20 20:59 Last Admin: 12/09/19 21:27 Dose: 2 tab Documented by: Sodium Biphosphate/Sodium Phosphate (Fleet Enema) 132 ml IL ONE PRN PRN Reason: Constipation Stop: 01/07/20 15:53 Tramadol HCl (Ultram) 50 - 100 mg PO Q4H PRN PRN Reason: Moderate-Severe Pain & Pre PT Stop: 01/07/20 15:53 Last Admin: 12/10/19 06:24 Dose: 50 mg Documented by:
[2019-12-10] MEDS: DOCUSATE SODIUM/SENNA 50/8.6MG TAB PO SCH (21:25)
[2019-12-11] MEDS: POLYETHYLENE (MIRALAX) 17 GM PACK PO SCH (06:40)
--- NOTE | 2019-12-11 08:33 | Discharge Summary ---
Date of Service December 11, 2019 Admission HPI Per Admitting Provider This is a 59-year-old male who presents with worsening back and leg pain after failing extensive course of nonoperative care is here for surgical invention. Principal Diagnosis Lumbar spinal stenosis with neurogenic claudication Discharge Data Allergies Allergy/AdvReac Type Severity Reaction Status Date / Time No Known Allergies Allergy Verified 12/08/19 10:23 Consultations 12/08/19 15:54 Consult Case Management - Discharge Planning Routine Consult Hospitalist Routine Procedures Performed Operation Date: 12/08/19 11:20 Actual Procedures p L4-S1 Decompression and Fusion, Spinal Cord Monitoring(Not Applicable) - Tobi Lilly DO Ordered Studies 12/08/19 11:20 FL fluoroscopy <1hr Routine FL lumbar spine 2-3V Routine Hospital Course (1) Neurogenic claudication due to lumbar spinal stenosis: Patient went multilevel lumbar decompression fusion tolerated this well was taken to orthopedic for possibly approach postop day #1 is up and ambulating progressed to postop #2 on postop day #3 in good strength testing JULISA drain decreasing appropriately. Pain controlled. Subsequently discharged home. Discharge orders and instructions found in the chart for further review. Total Time Total Time Spent Total Time Spent (In Minutes): 20 minutes Discharge Plan Discharge Items Patient Disposition: Home - Self-Care Reason For Visit: Lumbar Spinal Stenosis with Neurogenic Claudicatio Discharge Diagnosis: Lumbar spinal stenosis with neurogenic claudication Activity: As commented below Non-emergency contact: Primary Care Provider Call non-emergency contact if: you have any medication questions Follow-up/Referrals: Willie Hudson D.O. [Primary Care Provider] - Diet: Regular Addtl Attending Provider Instructions: ACTIVITY RECOMMENDATIONS: SELF CARE INSTRUCTIONS AFTER THORACIC/LUMBAR FUSIONS 1. You may walk to your tolerance. It is good exercise for your legs and back. Expect some back and intermittent leg aches and pains. 2. You may perform "counter-top" level activities (make a sandwich, adina with a project, etc.). 3. No bending or lifting of more than 10 pounds or back twisting of any nature (roll like a log when turning in bed). 4. You may ride in a car for 20-30 minutes at a time. No driving until after your first visit with your doctor. 5. Frequent changes of position and restricting sitting to 30 minutes at a time will help limit the amount of back spasms and stiffness you may experience. 6. You may discontinue the use of ambulatory aids (cane, crutches, etc.) once your strength and confidence allow. 7. You may dusting and brushing machine operator the shower and let water strike your incision when you arrive home at least once daily. Do not take a tub bath, sit in a hot tub or go into a swimming pool until after your first recheck in the office. SPECIAL CARE INSTRUCTIONS: VERY IMPORTANT TO READ AND REVIEW A. Your surgical incision has been closed with a cosmetic suture under the skin that will dissolve in about 6 weeks. In 14 days, you can use a pair of clean scissors and cut the suture that is left outside of the skin at the ends of your incision. 1. The small skin tapes can be removed 7 days after surgery if they have not fallen off by that point. 2. You may keep the wound open to air as much as possible to promote healing after post-op day number 5 unless told otherwise by your doctor. 3. If you think the wound looks like it is becoming infected (redness or worsening drainage) and/or you are experiencing fever, chill or worsening back pain and muscle spasms, contact the office so that we may evaluate you as soon as possible. B. Complications are uncommon, but please contact us if you have any signs or symptoms of: 1. wound infection (fever higher than 102.5 degrees F, redness, separation of wound, drainage, or increasing pain from the incision) 2. blood clots in legs (pain, swelling, redness and warmth in legs) 3. urinary tract infection (fever higher than 102.5 degrees F, burning upon urination or increased frequency of urination) 4. nerve problems (inability to walk on your toes or heels, numbness, loss of bowel or bladder control) 5. any other symptoms that concern you C. Please call the office at if you have any concerns or questions about your operation or recovery. D. No smoking! Smoking drastically decreases the chance of a solid fusion. E. Do not take any anti-inflammatory medications (Indocin, Advil, Motrin, Aspirin, Naprosyn, etc.) as these may inhibit the chance of a solid fusion. Tylenol is okay to take for pain. MANAGING PAIN AFTER SPINAL SURGERY 1. Narcotic medication is intended for short-term use and will be provided for surgical pain. Surgical pain usually lasts for a period of 4-6 weeks. Narcotic medication includes Percocet, Vicodin, Darvocet, Tylenol #3 or Lortab. 2. Longer-term pain is more appropriately treated with non-narcotic medication such as Tylenol ES. 3. Muscle spasm is not appropriately treated with narcotics. Muscle relaxers such as Soma, Flexeril or Skelaxin can be used along with Tylenol ES. 4. Remember that we all live with some "aches and pains". This is not unusual or uncommon after an injury or as we get older. a. Back pain is expected and may include muscle spasms for 4 to 6 weeks after surgery. The pain should gradually improve. If the pain worsens for no apparent reason, please contact the office. b. Intermittent leg pain may also be experienced and should not be concerned about unless it worsens for no apparent reason. If so, please contact the office. 5. We will provide appropriate medication within the normal guidelines of their prescribed use. We will also be very cautious and aware of potential abuse and extended duration of patients' medication needs. a. Pain medications are for your comfort and to assist with sleep and rest so that the tissue can heal. They are not provided in order to return to normal activity and should not be used through the day. To do so or worsening pain at night can result from ongoing tissue damage and development of tolerance to the prescribed medicine. 6. Please allow 2-3 days to process refills. Prescriptions will not be mailed but must be picked up at the office. FOLLOW UP VISIT: Keep your scheduled follow-up appointment. Any questions, please call the office at . Pending Studies at Discharge: No Stand-Alone Forms: [employer], Smoking Cessation Medications and DC Order Prescriptions: New tramadol 50 mg tablet 50 mg PO Q6H PRN (Reason: pain, moderate) Qty: 20 RF: 0 oxycodone 5 mg tablet 5 mg PO Q6H PRN (Reason: pain, severe) Qty: 20 RF: 0 Continued atorvastatin [Lipitor] 20 mg Tablet 20 mg PO QAM RF: 0 aspirin [Aspir-81] 81 mg Tablet,Delayed Release (Dr/Ec) 81 mg PO QAM RF: 0 metformin 1,000 mg Tablet Extended Release 24hr 2,000 mg PO QAM RF: 0 Centrum Silver 0.4-300-250 mg-mcg-mcg Tablet 1 tab PO QAM RF: 0 dexamethasone 4 mg tablet See Rx Instructions .ROUTE .COMPLEX Qty: 15 RF: 0 lorazepam [Ativan] 0.5 mg Tablet 0.5 mg PO PM PRN (Reason: Anxiety) RF: 0 oxycodone-acetaminophen 5-325 mg tablet 1 tab PO Q8H PRN (Reason: Pain) RF: 0 cyclobenzaprine 5 mg tablet 5 mg PO TID PRN (Reason: Muscle Spasm) RF: 0 Discharge Orders: Discharge Order (Routine); Ordered 12/11/19 Ordered By: Tobi Harkins/Other Patient Handouts: Prediabetes, A1C Admission Data Admit Date/Time: 12/08/19 15:07 Attending Provider: Tobi Lilly Admit Provider: Tobi Lilly Primary Care Provider: Willie Hudson Other Providers: Adam Potter ; Dane Gunderson ; Lacey Navarrete
[2019-12-11] MEDS: INSULIN ASPART 100 UNITS/ML 3 ML PEN SC SCH ×2 (08:58→12:53)
[2019-12-11] MEDS: ASPIRIN 81 MG ECTAB PO SCH (08:59)
[2019-12-11] MEDS: CEROVITE ADV FORMULA TAB PO SCH (09:00)
[2019-12-11] MEDS: ATORVASTATIN 20 MG TAB PO SCH (09:00)
[2019-12-11 15:09] VITALS: PULSE 60; TEMP 97.9; O2SAT 98
[2019-12-11 16:11] VITALS: BP 126/73
== END 2019-12-11 17:15 | disposition home or self-care (01) | DRG 455 ==
LOC: ASU 09:42 → 3E 15:07